=== PATIENT | female | born 1960 | race Caucasian/White ===

== ENCOUNTER 2016-09-16 07:16 | Inpatient (IN) | payer OTHER ==
[2016-09-04 13:39] VITALS: BMI 48.0
--- NOTE | 2016-09-04 14:18 | PAT Medication Instructions ---
Service Date Sep 04, 2016. Current Home Medication List Amoxicillin (Amoxil), 250 MG PO BID PRN for RN Ascorbic Acid (Vitamin C), 500 MG PO QAM Famotidine (Pepcid), 20 MG PO QID Lisinopril (Zestril), 5 MG PO QAM Lorazepam (Ativan *), 0.5 MG PO Q6HR PRN Magnesium (Magnesium 250 mg), 1 TAB PO WEEKLY [Benadryl Cr], 1 DOSE TOP PRN [Vitamin D ], 5,000 UNITS PO QAM Medication Instructions For Your Scheduled Surgery - Hold the following medications 24 hours prior to surgery: [Benadryl Cr], 1 DOSE TOP PRN - Hold the following medications the morning of surgery: [Vitamin D ], 5,000 UNITS PO QAM Ascorbic Acid (Vitamin C), 500 MG PO QAM Famotidine (Pepcid), 20 MG PO QID (large chewable pill) Lisinopril (Zestril), 5 MG PO QAM Magnesium (Magnesium 250 mg), 1 TAB PO WEEKLY - Take the following medications the morning of surgery with a sip of water OTHERWISE NOTHING TO EAT OR DRINK AFTER MIDNIGHT: Lorazepam (Ativan *), 0.5 MG PO Q6HR PRN - Take the following medications as scheduled the night before surgery: Famotidine (Pepcid), 20 MG PO QID Lorazepam (Ativan *), 0.5 MG PO Q6HR PRN If you have any questions please call us at [phone] or [phone] or [phone]
[2016-09-04 14:51] LABS: BASO % 0.4 %; BASO ABS # 0.03 K/uL (0-0.2); COMPLETE YES; HEMATOCRIT 42.3 % (37-47); IG% 0.6 %; LYMPH % 17.6 %; LYMPH ABS # 1.37 K/uL (1.2-3.4); MEAN CELL VOLUME 90.4 fL (80-100); MEAN CORPUSCULAR HEMOGLOBIN 30.6 pg (25-34); MEAN CORPUSCULAR HGB CONC 33.8 g/dl (32-36); MEAN PLATELET VOLUME 10.7 fL (7.4-10.4); MONO % 6.4 %; PLATELET COUNT 246 K/uL (130-400); RED BLOOD COUNT 4.68 M/uL (4.2-5.4); WHITE BLOOD COUNT 7.77 K/uL (4.8-10.8)
[2016-09-04 14:52] LABS: URINE APPEARANCE CLEAR (CLEAR); URINE BILIRUBIN NEG (NEG); URINE COLOR YELLOW; URINE NITRITE NEG (NEG); URINE PH 5.5 (4.5-7.5); URINE SPECIFIC GRAVITY 1.018 (1.000-1.030); UROBILINOGEN NEG (NEG)
--- NOTE | 2016-09-04 14:58 | DIAGNOSTIC IMAGING REPORT ---
TWO VIEW CHEST CLINICAL HISTORY: Preoperative examination. FINDINGS: PA and lateral chest radiographs are compared to study dated 07/09/2015. The cardiomediastinal silhouette is unremarkable. There is mild elevation of the right hemidiaphragm. Scattered calcified granulomas are similar to previous. The lungs and pleural spaces are otherwise clear. There is no pneumothorax. The skeletal structures are osteopenic. The bony thorax appears intact. Cholecystectomy clips are seen in the right upper quadrant. IMPRESSION: No active disease in the chest. Electronically signed by: Georges Manning M.D. 09/04/2016 2:56 PM Dictated Date/Time: 09/04/2016 2:56 PM
[2016-09-04 15:00] LABS: PARTIAL THROMBOPLASTIN RATIO 1.2; PROTHROMBIN TIME (PATIENT) 10.5 SECONDS (9.0-12.0)
[2016-09-04 15:05] LABS: MANUAL MICROSCOPIC REQUIRED? NO; REVIEW REQ? NO
[2016-09-04 15:08] LABS: BUN/CREATININE RATIO 14.9 (10-20); CALCIUM 8.8 mg/dl (8.5-10.1); CREATININE 0.81 mg/dl (0.60-1.20); POTASSIUM 3.7 mmol/L (3.5-5.1)
[2016-09-04 20:06] LABS: ESTIMATED AVERAGE GLUCOSE 131 mg/dl; HA1C FLAG Normal (Normal)
--- NOTE | 2016-09-12 07:47 | History and Physical ---
History & Physical Date of Service Sep 12, 2016. History & Physical PROCEDURE: Left knee replacement. HISTORY OF PRESENT ILLNESS: Tamra is a pleasant female who presents for preoperative evaluation prior to her scheduled Left total knee replacement. The patient states that she has been experiencing pain in that knee for several years now, which is gradually worsening. She recently had her right TKA performed and is doing well. She admits to pain, crepitus and decreased range of motion on her left side. She states that her knee pain has gradually been worsening which is rated as moderate to severe. It has gotten to the point now it is affecting her daily activities including walking, going up and down steps, kneeling or squatting. She has tried oral anti-inflammatories as well as Tylenol over the counter. She has tried viscosupplementation as well as cortisone injection without relief. At this point in time, she has failed conservative measures and after discussing further care would like to proceed with a left knee replacement. PAST MEDICAL HISTORY: 1. Hypertension. 2. GERD. 3. Fibromyalgia. 4. Depression. 5. Arthritis. 6. Acid reflux. 7. Obesity. ALLERGIES: 1. VANCOMYCIN. 2. SULFA. 3. PENICILLIN. 4. Omeprazole. 5. Macrolide. 6. Hydrocortisone. 7. Erythromycin. 8. Codeine. CURRENT MEDICATIONS: 1. Lisinopril 10 mg daily. 2. Sulazepam 0.5 mg daily. 3. Pepcid 20 mg daily. 4. Macrodantin 2 capsules by mouth q. 6 hours with food. 5. Flaxseed oil. 6. Vitamin D 2. PAST SURGICAL HISTORY: 1. ACL repair, right knee. 2. Appendectomy. 3. Hysterectomy. 4. Tonsillectomy. 5. Cholecystectomy. 6. . 7. Breast biopsy. 8. Right Total Knee Replacement 2014 FAMILY HISTORY: Noncontributory. SOCIAL HISTORY: The patient denies any history of smoking or tobacco use. No alcohol consumption. REVIEW OF SYSTEMS: Otherwise negative. Please see HPI for pertinent positives. PHYSICAL EXAMINATION: GENERAL: Pleasant 56-year-old female in no acute distress, alert and oriented x3. HEENT: Normocephalic, atraumatic. CARDIAC: Regular rate and rhythm. No murmurs or gallops appreciated. Resting pulse 80 beats per minute, blood pressure is 148/80. HEENT: Normocephalic, atraumatic. ABDOMEN: Soft, nontender. Bowel sounds present. EXTREMITIES: Left lower extremity, she is neurovascularly intact. Calves are soft and nontender. DP pulse +2. Good quad tone. Straight leg raise without lag. No erythema or warmth, mild effusion. Positive crepitation with motion, range of motion is 0/3/110. Her knee is ligamentously stable. She has diffuse tenderness to the knee, greatest over medial compartment. IMAGING: Xrays reviewed of the left knee showing findings consistent with degenerative joint disease including joint space narrowing, subchondral sclerosis and peripheral osteophyte formation. no acute bony pathology, overall varus alignment. Impression: degenerative joint disease of the left knee with no acute bony pathology noted. IMPRESSION: 1. Left knee DJD. 2. Hypertension. 3. GERD. 4. Fibromyalgia. 5. Depression. 6. Arthritis. 7. Acid reflux. PLAN: Further care discussed with the patient. At this point in time she would like to proceed with a left knee replacement after all the risks and benefits of the procedure have been discussed in detail. She has failed conservative measures. She will be discharged home with in home therapy, will place on aspirin 81 mg 1 tablet p.o. b.i.d. for 1 month postop. Otherwise, if no other questions or concerns will proceed with a left knee replacement.
[2016-09-16] VITALS (9 sets, daily range): BP systolic 120–176; BP diastolic 79–92; PULSE 72–82; TEMP 36.2–36.8; O2SAT 94–100; Ht 157.5 cm; Wt 120.2 kg
[~2016-09-16] VITALS: Ht 157.5 cm; Wt 120.2 kg
[2016-09-16] MEDS: TRANEXAMIC ACID INJ 1,000 MG in SODIUM CHLORIDE 0.9% 100ML 100 ML IV SCH ×2 (06:30→09:10)
--- NOTE | 2016-09-16 06:54 | History & Physical Bridge Note ---
H&P Re-Evaluation Bridge Note: I have examined the patient, reviewed the History & Physical and in the interval since the performance of the History & Physical I have noted the following changes of clinical significance: No changes noted
[~2016-09-16 07:16] MED LIST: AMOX250C3 PO; ASCA500 PO; ATV5 PO; BENADRYL TOP; BUPIVACAINE 0.25% 30 ML VIAL ONE; BUPIVACAINE 0.5 % 5 MG/1 ML PF 10ML VIAL ONE; CLINDAMYCIN 600 MG/54 ML D5W IV SCH; FAMO20TA11 PO; FENTANYL CITRATE INJ 50 MCG/1 ML 2 ML VIAL ONE; LACTATED RINGER'S 1000ML 1,000 ML IV SCH; LACTATED RINGER'S 1000ML 500 ML IV ONE; LISI-729 PO; MAGN250T3 PO; MIDAZOLAM HCL 1 MG/ML 2ML VIAL ONE; PROPOFOL IV EMULSION 10 MG/ML 20 ML VIAL IV ONE; ROPIVACAINE 5MG/ML 30 ML 150 MG, BUPIVACAINE/EPINEPHR 0.5% MPF 30 ML, KETOROLAC TROMETH... INFIL SCH; VITAMIN D PO
[2016-09-16] MEDS ORDERED: ONDANSETRON INJ 2 MG/ML 2 ML VIAL ONE (07:17)
[2016-09-16] MEDS ORDERED: LACTATED RINGER'S 1000ML 1,000 ML IV PRN (08:43)
[2016-09-16] MEDS ORDERED: POVIDONE-IODINE OP SOLN 30 ML BTL ONE (08:45)
[2016-09-16] MEDS ORDERED: FENTANYL CITRATE INJ 50 MCG/1 ML 2 ML VIAL IV PRN (08:45)
[2016-09-16] MEDS ORDERED: ONDANSETRON INJ 2 MG/ML 2 ML VIAL IV PRN (08:45)
[2016-09-16] MEDS ORDERED: BACITRACIN 50000 UNIT VIAL ONE (08:46)
[2016-09-16] MEDS ORDERED: CITRIC ACID/SODIUM CITRATE 15 ML UDC ONE (09:14)
[2016-09-16] MEDS ORDERED: MIDAZOLAM HCL 1 MG/ML 2ML VIAL ONE (09:31)
[2016-09-16] MEDS ORDERED: LABETALOL HCL IV 5 MG/ML 20ML IV ONE (09:46)
--- NOTE | 2016-09-16 10:30 | [facility] Post Operative Brief Note ---
Immediate Operative Summary Operative Date Sep 16, 2016. Pre-Operative Diagnosis Left Knee Degenerative Joint Disease Post-Operative Diagnosis Same as preop Procedure(s) Performed Left Total Knee Arthroplasty Surgeon Dr. Lozoya Senior Structural Engineer Surgeon(s) Cheng Resendez PA-C Estimated Blood Loss 5cc Findings severe djd lt knee Specimens A. Left Knee Bone and Tissue Complication(s) None Disposition Recovery Room / PACU
[2016-09-16] MEDS ORDERED: PROPOFOL IV EMULSION 10 MG/ML 20 ML VIAL IV ONE (10:32)
--- NOTE | 2016-09-16 10:39 | OPERATIVE REPORT ---
DATE OF OPERATION: 09/16/2016 PREOPERATIVE DIAGNOSIS: Severe end-stage tricompartmental degenerative joint disease left knee. POSTOPERATIVE DIAGNOSIS: Same. PROCEDURE: Left total knee arthroplasty utilizing Torres & Nephew Journey II nonblock total knee arthroplasty size 3 femur, 3 tibia, 9 poly, 29 oval patella. SURGEON: Dr. Lozoya. MEDICAL BILLING INSTRUCTOR: Cheng Resendez PA-C, who was necessary for prepping, draping, retraction, wound closure of deep fascia, subQ and skin and was necessary for the case. ESTIMATED BLOOD LOSS: 5 mL. TOURNIQUET TIME: 40 minutes. COMPLICATIONS: None. HISTORY OF PRESENT ILLNESS: The patient is a very pleasant 56-year-old white female with severe end-stage tricompartmental degenerative joint disease of the left knee. She has previously undergone successful right total knee arthroplasty after failing attempts of conservative management including injections, anti-inflammatories, relative rest, activity modification. Thorough discussion regarding risks, complications have been had. The patient elects to proceed forward with left total knee arthroplasty. OPERATION AND FINDINGS: PROCEDURE: The patient was properly prepped and draped in supine position for total knee arthroplasty after identifying the appropriate surgical site. An anterior midline incision was made through the subcutaneous tissues down to the region of the extensor mechanism. A medial parapatellar incision was subsequently made. Meticulous hemostasis was obtained and performed at all times. The patella having been subluxed lateralward, medial and lateral meniscal remnants were excised. The patellar cut was then initially made and was sized to the appropriate size. After subluxing the tibia forward the appropriate meniscal fragments having been removed the distal femur was then cut first utilizing a Torres & Nephew block. The distal femoral cuts and chamfer cuts were all made under direct visualization and the proximal tibial osteotomy cut was also made utilizing Torres & Nephew blocks and checked with an extramedullary guide. The appropriate trial components on the femur and tibia were placed. Appropriate trial spacers were used to check flexion and extension gaps. With flexion and extension gaps being equal, the components were then subsequently after thorough irrigation and debridement lavage components were then subsequently cemented in the following order: femur, tibia and patella. Exparel was used for intraoperative anesthesia, the medial parapatellar incision was closed utilizing #1 Vicryl, subQ was closed with 2-0 Vicryl, skin was closed with skin clips. A sterile compression dressing was placed. The patient was taken to recovery room in stable condition. Due to the complex nature of the procedure, the entire surgery was performed with the operational assistance of Cheng Resendez PA-C. The radiology physician assistant, under direct supervision, was involved in the actual performance of all aspects of the surgical procedure including hemostasis, tissue retraction and incision, instrument management, patient positioning, and wound closure. I attest to the content of the Intraoperative Record and any orders documented therein. Any exception s are noted below.
[2016-09-16] MEDS ORDERED: SOD PHOSPHATE/SOD BIPHOSPHATE ENEMA 132 ML BTL PR PRN (11:15)
[2016-09-16] MEDS ORDERED: BISACODYL 10 MG SUPP PR PRN (11:15)
[2016-09-16] MEDS ORDERED: MAGNESIUM HYDROXIDE SUSP 30 ML UDC PO PRN (11:15)
--- NOTE | 2016-09-16 11:39 | DIAGNOSTIC IMAGING REPORT ---
LEFT KNEE 1 OR 2 VIEWS ROUTINE CLINICAL HISTORY: Osteoarthritis COMPARISON: None. DISCUSSION: There are postsurgical changes of a total left knee arthroplasty and patellar resurfacing. The femoral and tibial components appear well seated. Overlying skin saman and surgical drains are evident. There is air within soft tissues consistent with recent surgery. IMPRESSION: Postsurgical changes of a total left knee arthroplasty. Electronically signed by: Trey Wong M.D. 09/16/2016 11:38 AM Dictated Date/Time: 09/16/2016 11:37 AM
--- NOTE | 2016-09-16 12:03 | Anesthesiology Progress Note ---
Anesthesia Post Op Note Date & Time Sep 16, 2016 at 12:03 Vital Signs Pain Intensity: 0 Vital Signs Past 12 Hours Date Time Temp Pulse Resp B/P (MAP) Pulse Ox O2 Delivery O2 Flow Rate FiO2 09/16/16 11:50 71 18 125/88 100 Nasal Cannula 2 09/16/16 11:40 72 16 114/72 100 Nasal Cannula 2 09/16/16 11:30 76 18 109/70 100 Nasal Cannula 2 09/16/16 11:20 76 18 112/65 100 Nasal Cannula 3 09/16/16 11:12 36.2 79 16 114/66 100 Nasal Cannula 3 09/16/16 08:01 36.5 82 20 176/92 98 Room Air Notes Mental Status: alert / awake / arousable, participated in evaluation Pt Amnestic to Procedure: Yes Nausea / Vomiting: adequately controlled Pain: adequately controlled Airway Patency, RR, SpO2: stable & adequate BP & HR: stable & adequate Hydration State: stable & adequate Neuraxial Anesthesia: was administered, sensory block is resolving Anesthetic Complications: no major complications apparent Pt doing well.
[2016-09-16] MEDS ORDERED: NURSING DECISION MEDICATION ORDER SCH (13:15)
[2016-09-16] MEDS ORDERED: SODIUM CHLORIDE 0.65% NA SOLN 45 ML (OCEAN) PRN (13:15)
[2016-09-16] MEDS: FERROUS GLUCONATE 324 MG TAB PO SCH ×2 (13:39→17:29)
[2016-09-16] MEDS: D5W AND 1/2NSS + 20MEQ KCL 1,000 ML IV SCH ×2 (13:39→22:03)
[2016-09-16] MEDS: ACETAMINOPHEN 500 MG TAB PO SCH ×2 (13:40→21:00)
[2016-09-16] MEDS: TRAMADOL HCL 50 MG TAB PO PRN ×2 (16:34→23:42)
[2016-09-16] MEDS: CLINDAMYCIN IV 900 MG in DEXTROSE 5% 100ML 100 ML IV SCH (17:30)
[2016-09-16] MEDS: MEPERIDINE HCL 25 MG/ML CARP IV PRN (17:53)
[2016-09-16] MEDS: ONDANSETRON INJ 2 MG/ML 2 ML VIAL IV PRN (18:22)
[2016-09-16] MEDS: ASPIRIN 81 MG ECTAB PO SCH (21:00)
[2016-09-16] MEDS: DOCUSATE SODIUM 100 MG CAP PO SCH (21:00)
[2016-09-16] MEDS: SENNA 8.6 MG TAB PO SCH (21:00)
[2016-09-17] VITALS (9 sets, daily range): BP systolic 139–184; BP diastolic 84–93; PULSE 69–83; TEMP 36.5–36.8; O2SAT 94–100
[2016-09-17] MEDS: ONDANSETRON INJ 2 MG/ML 2 ML VIAL IV PRN ×2 (01:12→07:37)
[2016-09-17] MEDS: MEPERIDINE HCL 25 MG/ML CARP IV PRN ×6 (01:12→22:02)
[2016-09-17] MEDS: CLINDAMYCIN IV 900 MG in DEXTROSE 5% 100ML 100 ML IV SCH ×2 (01:48→09:40)
[2016-09-17] MEDS: ACETAMINOPHEN 500 MG TAB PO SCH ×3 (05:49→21:20)
[2016-09-17] MEDS ORDERED: NURSING VERBAL MED ORDER ONE (06:45)
[2016-09-17 06:46] LABS: MEAN CELL VOLUME 90.7 fL (80-100); MEAN CORPUSCULAR HEMOGLOBIN 30.4 pg (25-34); MEAN CORPUSCULAR HGB CONC 33.5 g/dl (32-36); MEAN PLATELET VOLUME 10.7 fL (7.4-10.4); PLATELET COUNT 229 K/uL (130-400); RED BLOOD COUNT 4.41 M/uL (4.2-5.4); WHITE BLOOD COUNT 8.57 K/uL (4.8-10.8)
[2016-09-17 07:22] LABS: BUN/CREATININE RATIO 9.8 (10-20); CALCIUM 8.4 mg/dl (8.5-10.1); CREATININE 0.78 mg/dl (0.60-1.20)
--- NOTE | 2016-09-17 07:24 | Orthopedic Progress Note ---
Orthopedic Progress Note Date of Service Sep 17, 2016. Subjective Post OP Day: 1 (s/p Left TKA) Reports: feeling well, nausea / vomiting (improved with Nausea), pain controlled w PO medications, Denies: chest pain, SOB, light headedness, calf pain Objective calves soft nontender, N/V intact, capillary refill less than 2 sec., dressing C /D/I, A&O x3, toes mobile, hemovac drainage (250cc/8 hours) Date Time Temp Pulse Resp B/P (MAP) Pulse Ox O2 Delivery O2 Flow Rate FiO2 09/17/16 03:08 36.5 70 19 139/84 (102) 94 Room Air 09/17/16 00:05 99 Room Air 09/16/16 22:55 36.8 72 16 133/82 (99) 94 Room Air 09/16/16 19:27 36.4 73 18 143/83 (103) 98 Room Air 09/16/16 17:55 98 Room Air 09/16/16 15:47 36.5 79 18 125/83 (97) 96 Room Air 09/16/16 15:30 Room Air 09/16/16 15:16 36.2 77 153/79 (103) 100 Room Air 09/16/16 13:15 78 16 131/84 (100) 96 Room Air 09/16/16 12:49 72 16 120/82 (95) 98 Room Air 09/16/16 12:15 36.5 74 18 136/86 (103) 99 Nasal Cannula 1.0 09/16/16 12:15 99 Nasal Cannula 1.0 09/16/16 12:00 36.3 73 16 124/79 100 Nasal Cannula 2 09/16/16 11:50 71 18 125/88 100 Nasal Cannula 2 09/16/16 11:40 72 16 114/72 100 Nasal Cannula 2 09/16/16 11:30 76 18 109/70 100 Nasal Cannula 2 09/16/16 11:20 76 18 112/65 100 Nasal Cannula 3 09/16/16 11:12 36.2 79 16 114/66 100 Nasal Cannula 3 09/16/16 08:01 36.5 82 20 176/92 98 Room Air Laboratory Results 24 Hours: Test 09/17/16 06:23 Hematocrit 40.0 % Hemoglobin 13.4 g/dL Prothromb Time International Ratio 1.0 Prothrombin Time 11.0 SECONDS Assessment & Plan Assessment: POD #1 s/p Left TKA -PT/OT -dvt proph with lenin/scd/asa -[facility], will submit for approval this time as well -poor pain control, she does not want to try morphine or norco at this time, feels she is getting relief with demerol and ultram. will cont with this at this time. 1. Hypertension. 2. GERD. 3. Fibromyalgia. 4. Depression. 5. Arthritis. 6. Acid reflux. 7. Obesity.
[2016-09-17] MEDS ORDERED: KETOROLAC TROMETHAMINE 30 MG/ML VIAL IM ONE (07:30)
[2016-09-17] MEDS: FERROUS GLUCONATE 324 MG TAB PO SCH ×3 (09:39→18:00)
[2016-09-17] MEDS: DOCUSATE SODIUM 100 MG CAP PO SCH ×2 (09:39→21:20)
[2016-09-17] MEDS: MULTIVITAMIN TAB PO SCH (09:39)
[2016-09-17] MEDS: ASPIRIN 81 MG ECTAB PO SCH ×2 (09:39→21:20)
[2016-09-17] MEDS: D5W AND 1/2NSS + 20MEQ KCL 1,000 ML IV SCH (09:40)
[2016-09-17] MEDS: ALUMINUM/MAGNESIUM/SIMETH (MAALOX MAX) 30 ML UDC PO PRN ×2 (09:40→16:29)
[2016-09-17] MEDS: TRAMADOL HCL 50 MG TAB PO PRN ×3 (09:40→19:50)
--- NOTE | 2016-09-17 11:37 | Discharge Instructions ---
Discharge Instructions Date of Service Sep 17, 2016. Admission Reason for Admission: Left Knee Osteoarthritis Discharge Discharge Diagnosis / Problem: left total knee replacement Discharge Goals Goal(s): Decrease discomfort, Improve function, Increase independence Activity Recommendations Activity Level: Up Ad Cheryl Therapies: Physical Therapy (TKA protocol), Weight Bearing Status (Left leg WBAT with walker) Weightbearing Status: Left weightbearing (as tolerated) . Additional Information Patient informed of condition: Yes Advance Directives: No DNR: No Level of Care: Acute Rehab Communicable Disease: No Prognosis: Stable Instructions / Follow-Up Instructions / Follow-Up ACTIVITY RECOMMENDATIONS: SELF CARE INSTRUCTIONS AFTER TOTAL KNEE REPLACEMENT A. You may need to continue a physical therapy program after discharge from the hospital. There are several options available to you. Your doctor will assist you in selecting the best one for you. 1. An out-patient facility 2 to 3 times a week for therapy or home therapy. 2. Continue working on all exercises taught to you in the hospital. Your goals should be to increase bending of your knee to 90 degrees and beyond and to fully straighten your knee. B. You may progress at your own pace from walking with a walker or crutches to a cane; then to no assistive devices. C. Make walking a part of your daily routine. Be up as much as comfortable with rest periods throughout the day. Rest with leg elevation is very important. Use the ice wrap frequently for the first 3-4 weeks. D. There are no restrictions on activities. You may ride in a car, shop, participate in machinery dismantler and all social activities. E. Wear the long elastic stockings (BETTYE hose) 20 hours a day for 2 weeks after surgery. They can be removed several times a day for laundering and for a bath. F. You may shower, no tub baths until cleared by your doctor. SPECIAL CARE INSTRUCTIONS: VERY IMPORTANT TO READ AND REVIEW A. There are a few signs you need to watch for after you are home. Call [facility] if you notice any of the followin. Increased severe knee pain. Some pain is expected especially when you exercise. 2. Increased swelling in your leg or knee; pain or swelling of the calf muscle in either lower leg. 3. Any fluid drainage from the incision. 4. Shortness of breath or chest pain. B. Please call [facility] at if you have any concerns or questions about your operation or recovery. The doctor or his nurse will return your call promptly. C. You must take antibiotics before dental work, bladder, bowel or other surgery. Your doctor will provide you with a permanent care to carry describing this precaution. IMPORTANT: * REMEMBER TO TAKE ASPIRIN, 81 MG, TWICE DAILY FOR 4 WEEKS UNLESS OTHERWISE DIRECTED. THIS IS YOUR BLOOD THINNER. * HIGH RISK PATIENTS MAY BE PRESCRIBED A STRONGER BLOOD THINNER. THIS WILL BE PROVIDED AT DISCHARGE. * CALL IF INCREASED PAIN, REDNESS, DRAINAGE OR FEVER GREATER THAT 101. * WEAR BETTYE HOSE 20 HOURS PER DAY FOR 2 WEEKS. * Prevena- This is a large suction dressing covering your incision. This will help pull any excess drainage from the wound and allow your incision to heal properly. You may shower with this if you can keep the unit outside of the shower. If any bleeding or leakage is noted please call your doctor's office. This will remain on your incision for 7 days and then should be removed. This can be done yourself or by the home nursing staff if applicable. The entire unit is disposable once removed. Once removed, keep incision clean and dry. If redness or drainage is noted, please call your surgeon. FOLLOW UP VISIT: If appointment is not already scheduled: Please call [facility] [place] to make a follow-up appointment for 2 weeks after your surgery at . Current Hospital Diet Patient's current hospital diet: Regular Diet Discharge Diet Recommended Diet: Regular Diet Procedures Procedures Performed: Left Total Knee Arthroplasty Pending Studies Studies pending at discharge: no Physician Orders On Transfer Dressing Changes: Prevena- This is a large suction dressing covering your incision. This will help pull any excess drainage from the wound and allow your incision to heal properly. You may shower with this if you can keep the unit outside of the shower. If any bleeding or leakage is noted please call your doctor's office. This will remain on your incision for 7 days and then should be removed. This can be done yourself or by the home nursing staff if applicable. The entire unit is disposable once removed. Once removed, keep incision clean and dry. If redness or drainage is noted, please call your surgeon. Laboratory Results Hemoglobin A1c Test 09/04/16 14:35 Range/Units Estimated Average Glucose 131 mg/dl Hemoglobin A1c 6.2 H 4.5-5.6 % Medical Emergencies . Who to Call and When: Medical Emergencies: If at any time you feel your situation is an emergency, please call 911 immediately. . Non-Emergent Contact Non-Emergency issues call your: Primary Care Provider, Surgeon . . "Provider Documentation" section prepared by Cheng Resendez. . Core Measure Problem Core Measures: None [place] Drug Monitoring Program Search Results: patient reviewed within database, no issues identified
[2016-09-17] MEDS: SENNA 8.6 MG TAB PO SCH (21:20)
[2016-09-18] MEDS: MEPERIDINE HCL 25 MG/ML CARP IV PRN ×4 (01:19→13:56)
[2016-09-18] MEDS: ACETAMINOPHEN 500 MG TAB PO SCH ×3 (05:07→21:32)
--- NOTE | 2016-09-18 07:24 | Orthopedic Progress Note ---
Orthopedic Progress Note Date of Service Sep 18, 2016. Subjective Post OP Day: 2 Reports: feeling well, pain controlled w PO medications, Denies: complaints, chest pain, SOB, nausea / vomiting, light headedness, calf pain Objective calves soft nontender, N/V intact, capillary refill less than 2 sec., dressing C /D/I (prevena in place), A&O x3, toes mobile Date Time Temp Pulse Resp B/P (MAP) Pulse Ox O2 Delivery O2 Flow Rate FiO2 09/17/16 23:17 36.8 83 16 156/88 (110) 99 Room Air 09/17/16 23:07 Room Air 09/17/16 16:27 163/89 (113) 09/17/16 15:38 36.6 76 18 184/93 (123) 100 Room Air 09/17/16 15:30 Room Air 09/17/16 11:38 36.7 70 18 164/88 (113) 97 Room Air 09/17/16 08:25 Room Air 09/17/16 08:14 99 Room Air 09/17/16 08:01 36.7 69 19 150/88 (108) 99 Room Air Assessment & Plan Assessment: POD #2 s/p Left TKA -PT/OT -dvt proph with lenin/scd/asa -went to [facility] after her other TKA, will submit for approval this time as well -poor pain control, she does not want to try morphine or norco at this time, feels she is getting relief with demerol and ultram. will cont with this at this time. currently this am rates her pain as 5/10. 1. Hypertension. 2. GERD. 3. Fibromyalgia. 4. Depression. 5. Arthritis. 6. Acid reflux. 7. Obesity. Discharge Planning Discharge Planning: rehab hospital DVT Prophylaxis: TEDs, SCDs, ASA Therapy: Physical Therapy
[2016-09-18 07:44] VITALS: BP 152/82; PULSE 74; TEMP 36.7; O2SAT 95
[2016-09-18] MEDS: TRAMADOL HCL 50 MG TAB PO PRN ×4 (07:57→20:11)
[2016-09-18 08:20] VITALS: O2SAT 95
[2016-09-18] MEDS: FERROUS GLUCONATE 324 MG TAB PO SCH ×3 (08:30→18:20)
[2016-09-18] MEDS: ONDANSETRON INJ 2 MG/ML 2 ML VIAL IV PRN (08:42)
[2016-09-18] MEDS: MULTIVITAMIN TAB PO SCH (09:28)
[2016-09-18] MEDS: ASPIRIN 81 MG ECTAB PO SCH ×2 (09:28→21:30)
[2016-09-18] MEDS: DOCUSATE SODIUM 100 MG CAP PO SCH ×2 (09:28→21:30)
[2016-09-18 15:42] VITALS: BP 142/83; PULSE 70; TEMP 36.8; O2SAT 98
[2016-09-18] MEDS: SENNA 8.6 MG TAB PO SCH (21:30)
[2016-09-18] MEDS ORDERED: NURSING VERBAL MED ORDER ONE (22:00)
[2016-09-18 23:03] VITALS: BP 161/87; PULSE 89; TEMP 36.8; O2SAT 100
[2016-09-18] MEDS: MEPERIDINE 50 MG TAB PO PRN (23:08)
[2016-09-19] MEDS: TRAMADOL HCL 50 MG TAB PO PRN ×3 (03:39→16:15)
[2016-09-19] MEDS: ACETAMINOPHEN 500 MG TAB PO SCH ×3 (05:31→21:07)
[2016-09-19] MEDS: MEPERIDINE 50 MG TAB PO PRN ×4 (05:32→22:44)
[2016-09-19] MEDS ORDERED: NYSTATIN POWDER 15GM BTL EXT PRN (07:15)
--- NOTE | 2016-09-19 07:19 | Orthopedic Progress Note ---
Orthopedic Progress Note Date of Service Sep 19, 2016. Subjective Post OP Day: 3 Reports: feeling well, pain controlled w PO medications, Denies: complaints, chest pain, SOB, nausea / vomiting, light headedness, calf pain Objective calves soft nontender, N/V intact, capillary refill less than 2 sec., dressing C /D/I (prevena in place), A&O x3, toes mobile redness noted in the skin folds behind both of her knees, h/o fungal infections. no surrounding celllulitis. Date Time Temp Pulse Resp B/P (MAP) Pulse Ox O2 Delivery O2 Flow Rate FiO2 09/18/16 23:34 Room Air 09/18/16 23:03 36.8 89 15 161/87 (111) 100 Room Air 09/18/16 15:42 36.8 70 18 142/83 (102) 98 Room Air 09/18/16 15:15 Room Air 09/18/16 08:20 95 Room Air 09/18/16 08:02 Room Air 09/18/16 07:44 36.7 74 19 152/82 (105) 95 Room Air Assessment & Plan Assessment: POD #3 s/p Left TKA -PT/OT -dvt proph with lenin/scd/asa -[facility], will submit for approval this time as well -poor pain control, she does not want to try morphine or norco at this time, feels she is getting relief with demerol and ultram. will cont with this at this time. currently this am rates her pain as 5/10.was switched to PO Demerol last evening, tolerating well so far -will restart her home Nystatin powder behind both legs 1. Hypertension. 2. GERD. 3. Fibromyalgia. 4. Depression. 5. Arthritis. 6. Acid reflux. 7. Obesity. Discharge Planning Discharge Planning: rehab hospital DVT Prophylaxis: TEDs, SCDs, ASA Therapy: Physical Therapy
[2016-09-19 07:20] VITALS: BP 138/83; PULSE 84; TEMP 36.6; O2SAT 95
[2016-09-19] MEDS ORDERED: ACET-24 PO (07:21)
[2016-09-19] MEDS ORDERED: ONDA8TAB6 PO (07:21)
[2016-09-19] MEDS ORDERED: MPR50 PO (07:21)
[2016-09-19] MEDS ORDERED: ASPEC81 PO (07:21)
[2016-09-19] MEDS ORDERED: ULT50X PO (07:21)
[2016-09-19] MEDS: FERROUS GLUCONATE 324 MG TAB PO SCH ×3 (08:56→17:45)
[2016-09-19] MEDS: DOCUSATE SODIUM 100 MG CAP PO SCH ×2 (08:56→21:05)
[2016-09-19] MEDS: ASPIRIN 81 MG ECTAB PO SCH ×2 (08:56→21:06)
[2016-09-19] MEDS: MULTIVITAMIN TAB PO SCH (08:56)
[2016-09-19 15:35] VITALS: BP 161/83; PULSE 83; TEMP 36.6; O2SAT 97
[2016-09-19] MEDS: SENNA 8.6 MG TAB PO SCH (21:05)
[2016-09-19 23:30] VITALS: BP 166/83; PULSE 91; TEMP 36.8; O2SAT 92
[2016-09-20] MEDS: TRAMADOL HCL 50 MG TAB PO PRN ×3 (04:21→12:47)
[2016-09-20] MEDS: ACETAMINOPHEN 500 MG TAB PO SCH (05:54)
[2016-09-20 07:20] VITALS: BP 147/88; PULSE 85; TEMP 36.6; O2SAT 95
[2016-09-20] MEDS: ASPIRIN 81 MG ECTAB PO SCH (08:25)
[2016-09-20] MEDS: DOCUSATE SODIUM 100 MG CAP PO SCH (08:25)
[2016-09-20] MEDS: MULTIVITAMIN TAB PO SCH (08:25)
[2016-09-20] MEDS: FERROUS GLUCONATE 324 MG TAB PO SCH ×2 (08:25→12:30)
[2016-09-20] MEDS: ALUMINUM/MAGNESIUM/SIMETH (MAALOX MAX) 30 ML UDC PO PRN (08:27)
--- NOTE | 2016-09-20 09:10 | Orthopedic Progress Note ---
Orthopedic Progress Note Date of Service Sep 20, 2016. Subjective Post OP Day: 4 Reports: feeling well, pain controlled w PO medications, Denies: complaints, chest pain, SOB, nausea / vomiting, light headedness, calf pain Objective calves soft nontender, N/V intact, capillary refill less than 2 sec., dressing C /D/I (Prevena in place and functioning.), A&O x3, toes mobile Date Time Temp Pulse Resp B/P (MAP) Pulse Ox O2 Delivery O2 Flow Rate FiO2 09/20/16 07:20 36.6 85 19 147/88 (107) 95 Room Air 09/20/16 07:15 Room Air 09/19/16 23:30 36.8 91 16 166/83 (110) 92 Room Air 09/19/16 20:00 Room Air 09/19/16 16:00 Room Air 09/19/16 15:35 36.6 83 20 161/83 (109) 97 Room Air Assessment & Plan Assessment: POD #4 s/p Left TKA -PT/OT -dvt proph with lenin/scd/asa [facility], will submit for approval this time as well -poor pain control, she does not want to try morphine or norco at this time, feels she is getting relief with demerol and ultram. will cont with this at this time. currently this am rates her pain as 5/10.was switched to PO Demerol last evening, tolerating well so far -will restart her home Nystatin powder behind both legs 1. Hypertension. 2. GERD. 3. Fibromyalgia. 4. Depression. 5. Arthritis. 6. Acid reflux. 7. Obesity. Discharge Planning Discharge Planning: rehab hospital ([facility] today) DVT Prophylaxis: TEDs, SCDs, ASA Therapy: Physical Therapy
[2016-09-20] MEDS ORDERED: LORAZEPAM 0.5 MG TAB PO PRN (09:15)
[2016-09-20 12:02] VITALS: BP 147/88; PULSE 85; TEMP 36.6; O2SAT 95
[2016-09-21] MEDS ORDERED: LISINOPRIL 5 MG TAB PO SCH (09:00)
--- NOTE | 2016-09-21 10:49 | Discharge Summary ---
Orthopedic Discharge Summary Admission Date/Reason Sep 16, 2016 at 08:00 Left Knee Osteoarthritis. Discharge Date/Disposition Sep 20, 2016 Rehab Diagnosis Principal Diagnosis: Left Knee Osteoarthritis Secondary Diagnoses/Problems: PAST MEDICAL HISTORY: 1. Hypertension. 2. GERD. 3. Fibromyalgia. 4. Depression. 5. Arthritis. 6. Acid reflux. 7. Obesity. Procedure(s) Performed Left total knee arthroplasty utilizing [employer] nonblock total knee arthroplasty size 3 femur, 3 tibia, 9 poly, 29 oval patella. Consultations NONE Medication Reconciliation New Medications: Ondansetron Hcl (Zofran) 8 Mg Tab 8 MG PO Q8 PRN for Nausea, #20 TAB Acetaminophen (Sb Non-Aspirin Extra Stre) 500 Mg Tab 1000 MG PO Q8, #126 TAB Aspirin (Aspirin EC Low Dose) 81 Mg Ectab 81 MG PO BID for 30 Days, #60 TAB Meperidine HCl (Meperidine HCl) 50 Mg Tab 75 MG PO Q3H PRN for Pain, #90 TAB Tramadol HCl (Tramadol HCl) 50 Mg Tab 50-100 MG PO Q4H PRN for Pain, #90 TAB Continued Medications: Amoxicillin (Amoxil) 250 Mg Cap 250 MG PO BID PRN for RN, #30 CAP Ascorbic Acid (Vitamin C) 500 Mg Tab 500 MG PO QAM Famotidine (Pepcid) 20 Mg Tab 20 MG PO QID, TAB Lisinopril (Zestril) 5 Mg Tab 5 MG PO QAM, TAB MAY TAKE IN PM ALSO IF BP 160/90 READING PER PT Lorazepam (Ativan *) 0.5 Mg Tab 0.5 MG PO Q6HR PRN, 0 Refills Magnesium (Magnesium 250 mg) 1 Tab Tab 1 TAB PO WEEKLY [Benadryl Cr] () 1 DOSE TOP PRN [Vitamin D ] () 5000 UNITS PO QAM Admission Physical Exam As per Admitting History & Physical. Hospital Course Patient was a same day admission after undergoing a successful left TKA. She tolerated the procedure well. Post-operatively, her activity was progressed, had difficulty the first two days post-op due to pain tolerance with physical therapy secondary to pain medication tolerance and multiple allergies. Please refer to daily progress notes and PT notes for complete details. After exam on , patient felt to be stable for transfer to [facility]. Patient will f/u in the office in 2 weeks for further evaluation including x-rays and incision check, sooner if having any issues or concerns. Below are pertinent labs/ studies during their hospital stay: Last Resulted CBC 09/17/16 06:23 Last Resulted BMP 09/17/16 06:23 Last Vital Signs Documentation Date Time Temp Pulse Resp B/P (MAP) Pulse Ox O2 Delivery O2 Flow Rate FiO2 09/20/16 12:02 36.6 85 19 95 Room Air 09/20/16 07:20 147/88 (107) 09/16/16 12:15 1.0 Discharge Instructions ACTIVITY RECOMMENDATIONS: SELF CARE INSTRUCTIONS AFTER TOTAL KNEE REPLACEMENT A. You may need to continue a physical therapy program after discharge from the hospital. There are several options available to you. Your doctor will assist you in selecting the best one for you. 1. An out-patient facility 2 to 3 times a week for therapy or home therapy. 2. Continue working on all exercises taught to you in the hospital. Your goals should be to increase bending of your knee to 90 degrees and beyond and to fully straighten your knee. B. You may progress at your own pace from walking with a walker or crutches to a cane; then to no assistive devices. C. Make walking a part of your daily routine. Be up as much as comfortable with rest periods throughout the day. Rest with leg elevation is very important. Use the ice wrap frequently for the first 3-4 weeks. D. There are no restrictions on activities. You may ride in a car, shop, participate in pugger helper and all social activities. E. Wear the long elastic stockings (BETTYE hose) 20 hours a day for 2 weeks after surgery. They can be removed several times a day for laundering and for a bath. F. You may shower, no tub baths until cleared by your doctor. SPECIAL CARE INSTRUCTIONS: VERY IMPORTANT TO READ AND REVIEW A. There are a few signs you need to watch for after you are home. Call [facility] if you notice any of the followin. Increased severe knee pain. Some pain is expected especially when you exercise. 2. Increased swelling in your leg or knee; pain or swelling of the calf muscle in either lower leg. 3. Any fluid drainage from the incision. 4. Shortness of breath or chest pain. B. Please call [facility] at if you have any concerns or questions about your operation or recovery. The doctor or his nurse will return your call promptly. C. You must take antibiotics before dental work, bladder, bowel or other surgery. Your doctor will provide you with a permanent care to carry describing this precaution. IMPORTANT: * REMEMBER TO TAKE ASPIRIN, 81 MG, TWICE DAILY FOR 4 WEEKS UNLESS OTHERWISE DIRECTED. THIS IS YOUR BLOOD THINNER. * HIGH RISK PATIENTS MAY BE PRESCRIBED A STRONGER BLOOD THINNER. THIS WILL BE PROVIDED AT DISCHARGE. * CALL IF INCREASED PAIN, REDNESS, DRAINAGE OR FEVER GREATER THAT 101. * WEAR BETTYE HOSE 20 HOURS PER DAY FOR 2 WEEKS. * Prevena- This is a large suction dressing covering your incision. This will help pull any excess drainage from the wound and allow your incision to heal properly. You may shower with this if you can keep the unit outside of the shower. If any bleeding or leakage is noted please call your doctor's office. This will remain on your incision for 7 days and then should be removed. This can be done yourself or by the home nursing staff if applicable. The entire unit is disposable once removed. Once removed, keep incision clean and dry. If redness or drainage is noted, please call your surgeon. FOLLOW UP VISIT: If appointment is not already scheduled: Please call [facility] to make a follow-up appointment for 2 weeks after your surgery at .
== END 2016-09-20 13:10 | DRG 470 ==
LOC: C.ACU 07:16 → C.3E 08:00 → ENRESERV 12:03
PROVIDERS: ADMIT Orthopaedic Surgery; ATTEND Orthopaedic Surgery
PROC: 0SRD0JZ Replacement of Left Knee Joint with Synthetic Substitute, Open Approach (ICD-10-PCS; principal; 2016-09-16 09:15)
DX: M17.12 Unilateral primary osteoarthritis, left knee (principal); I10 Essential (primary) hypertension; K21.9 Gastro-esophageal reflux disease without esophagitis; M79.7 Fibromyalgia; F32.9 Major depressive disorder, single episode, unspecified; E66.9 Obesity, unspecified; Z96.651 Presence of right artificial knee joint